=== PATIENT | male | born 1975 | race Caucasian/White ===

== ENCOUNTER 2017-03-14 11:11 | Emergency (ER) | payer OTHER ==
[~2017-03-14] VITALS: Ht 175.3 cm; Wt 68.0 kg
[2017-03-14 11:13] VITALS: BP 130/82
[2017-03-14 12:45] LABS: BASOPHILS # (AUTO) 0.02 x10^3/uL (0-0.1); BASOPHILS % (AUTO) 0 % (0-1); EOSINOPHILS # (AUTO) 0.02 x10^3/uL (0-0.4); EOSINOPHILS % (AUTO) 0 % (1-7); LYMPHOCYTES # (AUTO) 2.24 x10^3/uL (1-3.4); LYMPHOCYTES % (AUTO) 26 % (22-44); MD NO; MEAN CORPUSCULAR HEMOGLOBIN 30.7 pg (27.5-34.5); MEAN CORPUSCULAR HGB CONC 32.9 g/dL (33.2-36.2); MEAN CORPUSCULAR VOLUME 93.2 fL (81-97); MEAN PLATELET VOLUME 8.5 fL (7.4-10.4); MONOCYTES # (AUTO) 0.62 x10^3/uL (0.2-0.8); MONOCYTES % (AUTO) 7 % (2-9); NEUTROPHILS # (AUTO) 5.68 x10^3/uL (1.8-6.8); NEUTROPHILS % (AUTO) 66 % (42-75); PLATELET COUNT 204 x10^3/uL (130-400); RED BLOOD COUNT 5.24 x10^6/uL (4.38-5.82); RED CELL DISTRIBUTION WIDTH 14.4 % (9.4-14.8)
[2017-03-14 12:56] LABS: ALANINE AMINOTRANSFERASE 17 U/L (12-78); ALBUMIN 3.7 g/dL (3.4-5.0); ANION GAP 5 mmol/L (5-15); CALCIUM 8.6 mg/dL (8.5-10.1); CHLORIDE 107 mmol/L (98-107); CREATININE 1.16 mg/dL (0.7-1.3)
[2017-03-14 12:58] LABS: ALKALINE PHOSPHATASE 74 U/L (45-117); BILIRUBIN,TOTAL 1.3 mg/dL (0.2-1.0); TOTAL PROTEIN 8.1 g/dL (6.4-8.2)
[2017-03-14] MEDS ORDERED: FAMOTIDINE 20 MG TABLET ONE (13:56)
[2017-03-14] MEDS ORDERED: MAALOX/HYOSCYAMINE/LIDOCAINE 45 ML BTL ONE (13:57)
[2017-03-14] MEDS ORDERED: MAALOX/HYOSCYAMINE/LIDOCAINE 45 ML BTL PO ONE (14:00)
[2017-03-14] MEDS ORDERED: FAMOTIDINE 20 MG TABLET PO ONE (14:00)
[2017-03-14 14:15] LABS: CULTURE INDICATED? YES; MICROSCOPIC INDICATED
== END 2017-03-14 14:40 | disposition home or self-care (01) ==
LOC: ED 14:34
DX: K29.00 Acute gastritis without bleeding (principal)
CPT/HCPCS: 36415; 74021; 80053; 81001; 83690; 85025; 87086; 99285